=== PATIENT | male | born 1950 | race Caucasian/White ===

== ENCOUNTER → 2017-11-19 | Outpatient (CLI) | payer MEDICARE ==
[~2017-11-19] MED LIST: AMOCLA875 PO; ASPI81EC PO; BETA1 PO; BILBERRY; BILBERRY PO; Bactrim Ds Tab1 EACH PO; CHOL10002 PO; CLOP75 PO; CYAN500 PO; Cipro750 MG PO; DIOVAN HCT PO; DULO60 PO; DUTA.5 PO; ESOM20 PO; EVENING PRIMR1000 MG PO; EVENING PRIMROSE; EZET10 PO; FENO160 PO; FEXPSEER PO; FINA5 PO; FISH1000 PO; HYDCOR1TO TOP; HYDR-86 PO; IBUP800 PO; LEVSOD100 PO; LIDO5TO TOP; LISI5 PO; LOSHYD PO; METANX CAPSULE1 EACH PO; MORP15ER PO; MULVITMIND PO; NEBI5 PO; NITR.4SL SL; Norco PO; Ocuvite Preser1 EACH PO; PIOG15 PO; POLY17UD PO; PREG100 PO; PREG300 PO; PYRI100 PO; ROPI.25 PO; SIMV10 PO; SULTRIDS PO; TAMS.4ER PO; TIGER BALM OINTM8 GM TP; TRAM50 PO
== END ==
LOC: LAB SHORT 18:05 → LAB 18:05
DX: N20.0 Calculus of kidney (principal); R31.9 Hematuria, unspecified; R30.0 Dysuria
CPT/HCPCS: 87086

== ENCOUNTER → 2018-08-21 | Outpatient (CLI) | payer MEDICARE | END | disposition home or self-care (01) | LOC: LAB SHORT 07:59 → PLD 07:59 | DX: D22.5 Melanocytic nevi of trunk (principal); L82.1 Other seborrheic keratosis | CPT/HCPCS: 88305 ==

== ENCOUNTER → 2018-09-11 | Outpatient (CLI) | payer MEDICARE | END | disposition home or self-care (01) | LOC: LAB 17:22 → LAB SHORT 17:22 | DX: L97.509 Non-pressure chronic ulcer of other part of unspecified foot with unspecified severity (principal) | CPT/HCPCS: 87070; 87075; 87076; 87205 ==

== ENCOUNTER → 2019-02-19 | Outpatient (CLI) | payer MEDICARE | END | disposition home or self-care (01) | LOC: LAB SHORT 14:29 → LAB 14:29 | DX: L97.509 Non-pressure chronic ulcer of other part of unspecified foot with unspecified severity (principal) | CPT/HCPCS: 87070; 87075; 87205 ==

== ENCOUNTER → 2019-02-25 | Outpatient (CLI) | payer MEDICARE | END | disposition home or self-care (01) | LOC: LAB SHORT 08:26 → PLD 08:26 | DX: D22.5 Melanocytic nevi of trunk (principal) | CPT/HCPCS: 88305; 88342 ==

== ENCOUNTER 2019-02-27 07:49 | Day surgery (SDC) | payer MEDICARE | END 2019-02-27 23:36 | disposition home or self-care (01) | LOC: WOUND 07:49 | DX: E11.621 Type 2 diabetes mellitus with foot ulcer (principal); L97.529 Non-pressure chronic ulcer of other part of left foot with unspecified severity; E11.42 Type 2 diabetes mellitus with diabetic polyneuropathy; I10 Essential (primary) hypertension; Z89.412 Acquired absence of left great toe; Z89.422 Acquired absence of other left toe(s) | CPT/HCPCS: G0463 ==

== ENCOUNTER 2019-03-04 00:24 | Day surgery (SDC) | payer MEDICARE | END 2019-03-04 22:58 | disposition home or self-care (01) | LOC: WOUND 00:24 | DX: E11.621 Type 2 diabetes mellitus with foot ulcer (principal); L97.521 Non-pressure chronic ulcer of other part of left foot limited to breakdown of skin; E11.42 Type 2 diabetes mellitus with diabetic polyneuropathy | CPT/HCPCS: Q4196 ==

== ENCOUNTER 2019-03-11 00:26 | Day surgery (SDC) | payer MEDICARE | END 2019-03-11 23:17 | disposition home or self-care (01) | LOC: WOUND 00:26 | DX: E11.621 Type 2 diabetes mellitus with foot ulcer (principal); L97.529 Non-pressure chronic ulcer of other part of left foot with unspecified severity; E11.42 Type 2 diabetes mellitus with diabetic polyneuropathy; I10 Essential (primary) hypertension; Z89.412 Acquired absence of left great toe; Z89.422 Acquired absence of other left toe(s) | CPT/HCPCS: G0463 ==

== ENCOUNTER 2019-03-17 00:22 | Day surgery (SDC) | payer MEDICARE | END 2019-03-17 22:42 | disposition home or self-care (01) | LOC: WOUND 00:22 | DX: E11.621 Type 2 diabetes mellitus with foot ulcer (principal); L97.521 Non-pressure chronic ulcer of other part of left foot limited to breakdown of skin; I10 Essential (primary) hypertension; E11.42 Type 2 diabetes mellitus with diabetic polyneuropathy | CPT/HCPCS: Q4196 ==

== ENCOUNTER 2019-03-25 14:40 | Day surgery (SDC) | payer MEDICARE | END 2019-03-25 22:49 | disposition home or self-care (01) | LOC: WOUND 14:40 | DX: E11.621 Type 2 diabetes mellitus with foot ulcer (principal); L97.529 Non-pressure chronic ulcer of other part of left foot with unspecified severity; E11.42 Type 2 diabetes mellitus with diabetic polyneuropathy; I10 Essential (primary) hypertension; Z89.422 Acquired absence of other left toe(s) | CPT/HCPCS: 73630; G0463 ==

== ENCOUNTER → 2019-03-25 | Outpatient (CLI) | payer MEDICARE | END | disposition home or self-care (01) | LOC: LAB SHORT 14:27 → PLD 14:27 | DX: D48.5 Neoplasm of uncertain behavior of skin (principal) | CPT/HCPCS: 88305 ==

== ENCOUNTER 2019-04-01 14:58 | Day surgery (SDC) | payer MEDICARE | END 2019-04-01 23:06 | disposition home or self-care (01) | LOC: WOUND 14:58 | DX: E11.621 Type 2 diabetes mellitus with foot ulcer (principal); L97.521 Non-pressure chronic ulcer of other part of left foot limited to breakdown of skin; E11.40 Type 2 diabetes mellitus with diabetic neuropathy, unspecified; I10 Essential (primary) hypertension | CPT/HCPCS: Q4196 ==

== ENCOUNTER 2019-04-08 00:39 | Day surgery (SDC) | payer MEDICARE | END 2019-04-08 22:45 | disposition home or self-care (01) | LOC: WOUND 00:39 | DX: E11.621 Type 2 diabetes mellitus with foot ulcer (principal); L97.522 Non-pressure chronic ulcer of other part of left foot with fat layer exposed; E11.42 Type 2 diabetes mellitus with diabetic polyneuropathy; I10 Essential (primary) hypertension; E78.00 Pure hypercholesterolemia, unspecified; Z79.899 Other long term (current) drug therapy | CPT/HCPCS: Q4196 ==

== ENCOUNTER 2019-04-15 14:46 | Day surgery (SDC) | payer MEDICARE | END 2019-04-15 23:06 | disposition home or self-care (01) | LOC: WOUND 14:46 | DX: E11.621 Type 2 diabetes mellitus with foot ulcer (principal); L97.522 Non-pressure chronic ulcer of other part of left foot with fat layer exposed; E11.42 Type 2 diabetes mellitus with diabetic polyneuropathy; I10 Essential (primary) hypertension | CPT/HCPCS: Q4196 ==

== ENCOUNTER 2019-04-22 00:16 | Day surgery (SDC) | payer MEDICARE | END 2019-04-22 22:58 | disposition home or self-care (01) | LOC: WOUND 00:16 | DX: E11.621 Type 2 diabetes mellitus with foot ulcer (principal); L97.522 Non-pressure chronic ulcer of other part of left foot with fat layer exposed; E11.42 Type 2 diabetes mellitus with diabetic polyneuropathy; G89.29 Other chronic pain; E78.00 Pure hypercholesterolemia, unspecified; I10 Essential (primary) hypertension; Z79.899 Other long term (current) drug therapy | CPT/HCPCS: Q4196 ==

== ENCOUNTER 2019-04-29 00:26 | Day surgery (SDC) | payer MEDICARE | END 2019-04-29 22:41 | disposition home or self-care (01) | LOC: WOUND 00:26 | DX: E11.621 Type 2 diabetes mellitus with foot ulcer (principal); L97.522 Non-pressure chronic ulcer of other part of left foot with fat layer exposed; E11.42 Type 2 diabetes mellitus with diabetic polyneuropathy; E78.00 Pure hypercholesterolemia, unspecified; I10 Essential (primary) hypertension; Z79.899 Other long term (current) drug therapy ==

== ENCOUNTER 2019-05-06 00:26 | Day surgery (SDC) | payer MEDICARE | END 2019-05-06 22:46 | disposition home or self-care (01) | LOC: WOUND 00:26 | DX: E11.621 Type 2 diabetes mellitus with foot ulcer (principal); L97.522 Non-pressure chronic ulcer of other part of left foot with fat layer exposed; E11.42 Type 2 diabetes mellitus with diabetic polyneuropathy; E78.00 Pure hypercholesterolemia, unspecified; I10 Essential (primary) hypertension; Z79.899 Other long term (current) drug therapy | CPT/HCPCS: Q4133 ==

== ENCOUNTER 2019-05-13 14:46 | Day surgery (SDC) | payer MEDICARE | END 2019-05-13 23:14 | disposition home or self-care (01) | LOC: WOUND 14:46 | DX: E11.621 Type 2 diabetes mellitus with foot ulcer (principal); L97.522 Non-pressure chronic ulcer of other part of left foot with fat layer exposed; E11.52 Type 2 diabetes mellitus with diabetic peripheral angiopathy with gangrene; I96 Gangrene, not elsewhere classified; E11.42 Type 2 diabetes mellitus with diabetic polyneuropathy; E78.00 Pure hypercholesterolemia, unspecified; I10 Essential (primary) hypertension; G89.29 Other chronic pain; D64.9 Anemia, unspecified; Z79.899 Other long term (current) drug therapy | CPT/HCPCS: Q4133 ==

== ENCOUNTER 2019-05-20 14:48 | Day surgery (SDC) | payer MEDICARE | END 2019-05-20 23:59 | disposition home or self-care (01) | LOC: WOUND 14:48 | DX: E11.621 Type 2 diabetes mellitus with foot ulcer (principal); L97.522 Non-pressure chronic ulcer of other part of left foot with fat layer exposed; E11.42 Type 2 diabetes mellitus with diabetic polyneuropathy; E78.00 Pure hypercholesterolemia, unspecified; I10 Essential (primary) hypertension; G89.29 Other chronic pain; Z79.899 Other long term (current) drug therapy | CPT/HCPCS: Q4133 ==

== ENCOUNTER 2019-05-27 14:08 | Day surgery (SDC) | payer MEDICARE | END 2019-05-27 22:50 | disposition home or self-care (01) | LOC: WOUND 14:08 | DX: E11.621 Type 2 diabetes mellitus with foot ulcer (principal); E11.42 Type 2 diabetes mellitus with diabetic polyneuropathy; E78.00 Pure hypercholesterolemia, unspecified; I10 Essential (primary) hypertension; G89.29 Other chronic pain; L97.522 Non-pressure chronic ulcer of other part of left foot with fat layer exposed; Z79.899 Other long term (current) drug therapy | CPT/HCPCS: Q4133 ==

== ENCOUNTER 2019-06-09 11:12 | Day surgery (SDC) | payer MEDICARE | END 2019-06-09 22:36 | disposition home or self-care (01) | LOC: WOUND 11:12 | DX: E11.621 Type 2 diabetes mellitus with foot ulcer (principal); L97.522 Non-pressure chronic ulcer of other part of left foot with fat layer exposed; E11.52 Type 2 diabetes mellitus with diabetic peripheral angiopathy with gangrene; I96 Gangrene, not elsewhere classified; E11.42 Type 2 diabetes mellitus with diabetic polyneuropathy; D64.9 Anemia, unspecified; E78.00 Pure hypercholesterolemia, unspecified; I10 Essential (primary) hypertension; G89.29 Other chronic pain; Z89.422 Acquired absence of other left toe(s); Z79.899 Other long term (current) drug therapy ==

== ENCOUNTER 2019-06-24 00:37 | Day surgery (SDC) | payer MEDICARE | END 2019-06-24 22:49 | disposition home or self-care (01) | LOC: WOUND 00:37 | DX: E11.621 Type 2 diabetes mellitus with foot ulcer (principal); L97.522 Non-pressure chronic ulcer of other part of left foot with fat layer exposed; E11.52 Type 2 diabetes mellitus with diabetic peripheral angiopathy with gangrene; I96 Gangrene, not elsewhere classified; I10 Essential (primary) hypertension; D64.9 Anemia, unspecified; E11.42 Type 2 diabetes mellitus with diabetic polyneuropathy; E78.00 Pure hypercholesterolemia, unspecified; E78.5 Hyperlipidemia, unspecified; G89.29 Other chronic pain; Z89.422 Acquired absence of other left toe(s); Z79.899 Other long term (current) drug therapy | CPT/HCPCS: 73630; G0463 ==

== ENCOUNTER 2019-07-08 00:18 | Day surgery (SDC) | payer MEDICARE | END 2019-07-08 23:15 | disposition home or self-care (01) | LOC: WOUND 00:18 | DX: E11.621 Type 2 diabetes mellitus with foot ulcer (principal); E11.42 Type 2 diabetes mellitus with diabetic polyneuropathy; L97.522 Non-pressure chronic ulcer of other part of left foot with fat layer exposed; E78.00 Pure hypercholesterolemia, unspecified; I10 Essential (primary) hypertension; Z79.899 Other long term (current) drug therapy ==

== ENCOUNTER 2019-07-15 00:18 | Day surgery (SDC) | payer MEDICARE | END 2019-07-15 23:12 | disposition home or self-care (01) | LOC: WOUND 00:18 | DX: E11.621 Type 2 diabetes mellitus with foot ulcer (principal); E11.42 Type 2 diabetes mellitus with diabetic polyneuropathy; L97.522 Non-pressure chronic ulcer of other part of left foot with fat layer exposed; E78.00 Pure hypercholesterolemia, unspecified; I10 Essential (primary) hypertension; Z79.899 Other long term (current) drug therapy ==

== ENCOUNTER → 2019-07-21 | Outpatient (CLI) | payer MEDICARE | END | disposition home or self-care (01) | LOC: LAB SHORT 11:41 → LAB 11:41 | DX: E11.621 Type 2 diabetes mellitus with foot ulcer (principal); L97.529 Non-pressure chronic ulcer of other part of left foot with unspecified severity; E11.40 Type 2 diabetes mellitus with diabetic neuropathy, unspecified | CPT/HCPCS: 87070; 87075; 87077; 87205 ==

== ENCOUNTER → 2019-08-10 | Outpatient (CLI) | payer MEDICARE | END | disposition home or self-care (01) | LOC: PLD 12:39 → LAB SHORT 12:39 | DX: M86.172 Other acute osteomyelitis, left ankle and foot (principal); Z89.422 Acquired absence of other left toe(s) | CPT/HCPCS: 87070; 87075; 87205; 88305; 88311 ==

== ENCOUNTER → 2019-11-04 | Outpatient (CLI) | payer MEDICARE | END | disposition home or self-care (01) | LOC: LAB SHORT 15:31 → LAB 15:31 | DX: E11.40 Type 2 diabetes mellitus with diabetic neuropathy, unspecified (principal); L03.119 Cellulitis of unspecified part of limb | CPT/HCPCS: 87070; 87075; 87077; 87205 ==

== ENCOUNTER → 2020-02-01 | Outpatient (CLI) | payer MEDICARE | END | disposition home or self-care (01) | LOC: LAB 11:38 → LAB SHORT 11:38 | DX: M79.673 Pain in unspecified foot (principal); E11.42 Type 2 diabetes mellitus with diabetic polyneuropathy; E11.621 Type 2 diabetes mellitus with foot ulcer; L97.509 Non-pressure chronic ulcer of other part of unspecified foot with unspecified severity; E11.69 Type 2 diabetes mellitus with other specified complication; M86.179 Other acute osteomyelitis, unspecified ankle and foot; L03.119 Cellulitis of unspecified part of limb | CPT/HCPCS: 88305; 88311 ==

== ENCOUNTER → 2020-09-14 | Outpatient (CLI) | payer MEDICARE | LOC: LAB SHORT 15:12 | DX: D48.5 Neoplasm of uncertain behavior of skin (principal); D22.5 Melanocytic nevi of trunk; D31.61 Benign neoplasm of unspecified site of right orbit | CPT/HCPCS: 88305 ==

== ENCOUNTER 2020-11-13 16:23 | Emergency (ER) | payer MEDICARE ==
[~2020-11-13] VITALS: Ht 190.5 cm; Wt 90.7 kg
[2020-11-13] MEDS ORDERED: CEPH500 PO (17:17)
== END 2020-11-13 17:46 | disposition home or self-care (01) ==
LOC: ER 16:23
DX: S91.311A Laceration without foreign body, right foot, initial encounter (principal); E11.40 Type 2 diabetes mellitus with diabetic neuropathy, unspecified; Z79.899 Other long term (current) drug therapy; W45.8XXA Other foreign body or object entering through skin, initial encounter
CPT/HCPCS: 12001; 99282-25

== ENCOUNTER → 2021-05-16 | Outpatient (CLI) | payer MEDICARE ==
[~2021-05-16] MED LIST changes: +CEPH500 PO
== END | disposition home or self-care (01) ==
LOC: LAB SHORT 08:30
DX: C44.41 Basal cell carcinoma of skin of scalp and neck (principal); D22.5 Melanocytic nevi of trunk
CPT/HCPCS: 88305

== ENCOUNTER → 2021-11-22 | Outpatient (CLI) | payer MEDICARE ==
[2021-11-22 17:17] LABS: BASOPHILS ABSOLUTE AUTO 0.02 K/mm3 (0.00-0.23); BASOPHILS PERCENT AUTO 0 % (0-2); EOSINOPHILS ABSOLUTE AUTO 0.02 K/mm3 (0.00-0.68); EOSINOPHILS PERCENT AUTO 0 % (0-6); Hematocrit 42.7 % (37.0-53.0); Hemoglobin 15.3 g/dL (13.5-17.5); IMMATURE GRAN ABSOLUTE AUTO 0.05 K/mm3 (0.00-0.10); IMMATURE GRAN PERCENT AUTO 1 % (0-1); LYMPHOCYTES ABSOLUTE AUTO 1.62 K/mm3 (0.84-5.20); LYMPHOCYTES PERCENT AUTO 18 % (21-46); MONOCYTES ABSOLUTE AUTO 0.66 K/mm3 (0.16-1.47); MONOCYTES PERCENT AUTO 7 % (4-13); Mean Corpuscular HGB 30.9 pg (26.0-34.0); Mean Corpuscular HGB Conc 35.8 g/dL (31.5-36.5); Mean Corpuscular Volume 86 fL (80-100); Mean Platelet Volume 10.1 fL (9.1-12.4); NEUTROPHILS ABSOLUTE AUTO 6.76 K/mm3 (1.96-9.15); NEUTROPHILS PERCENT AUTO 74 % (41-73); Platelet Count 263 K/mm3 (150-400); RDW Coefficient Variation 13.8 % (11.7-14.2); RDW Standard Deviation 42.8 fL (35.1-46.3); Red Blood Cell Count 4.95 M/mm3 (4.30-5.90); White Blood Cell Count 9.13 K/mm3 (4.00-11.30)
[2021-11-22 17:23] LABS: Bun/Creatinine Ratio 13.2 (12.0-20.0); Calcium, Blood 9.5 mg/dL (8.5-10.1); Creatinine, Blood 1.29 mg/dL (0.60-1.20); Potassium, Blood 3.2 mmol/L (3.5-5.5)
== END | disposition home or self-care (01) ==
LOC: LAB SHORT 17:11 → LAB 17:11
PROVIDERS: Physician Assistant Surgical
DX: R06.00 Dyspnea, unspecified (principal)
CPT/HCPCS: 80048; 84484; 85025

== ENCOUNTER 2022-05-23 14:33 | Emergency (ER) | payer MEDICARE ==
[~2022-05-23] VITALS: Ht 190.5 cm; Wt 99.8 kg
[2022-05-23 15:42] LABS: BASOPHILS ABSOLUTE AUTO 0.05 K/mm3 (0.00-0.23); BASOPHILS PERCENT AUTO 1 % (0-2); EOSINOPHILS ABSOLUTE AUTO 0.09 K/mm3 (0.00-0.68); EOSINOPHILS PERCENT AUTO 1 % (0-6); Hematocrit 37.7 % (37.0-53.0); IMMATURE GRAN ABSOLUTE AUTO 0.03 K/mm3 (0.00-0.10); IMMATURE GRAN PERCENT AUTO 0 % (0-1); LYMPHOCYTES ABSOLUTE AUTO 1.79 K/mm3 (0.84-5.20); LYMPHOCYTES PERCENT AUTO 16 % (21-46); MONOCYTES ABSOLUTE AUTO 0.79 K/mm3 (0.16-1.47); MONOCYTES PERCENT AUTO 7 % (4-13); Mean Corpuscular HGB 30.5 pg (26.0-34.0); Mean Corpuscular HGB Conc 34.5 g/dL (31.5-36.5); Mean Corpuscular Volume 89 fL (80-100); Mean Platelet Volume 9.7 fL (9.1-12.4); NEUTROPHILS PERCENT AUTO 75 % (41-73); Platelet Count 320 K/mm3 (150-400); RDW Coefficient Variation 14.2 % (11.7-14.2); RDW Standard Deviation 45.8 fL (35.1-46.3); Red Blood Cell Count 4.26 M/mm3 (4.30-5.90); White Blood Cell Count 10.95 K/mm3 (4.00-11.30)
[2022-05-23 16:07] LABS: Albumin, Blood 3.7 g/dL (3.4-5.0); Albumin/Globulin Ratio 0.9 (0.8-1.8); Bilirubin, Total 0.8 mg/dL (0.1-1.0); Bun/Creatinine Ratio 13.3 (12.0-20.0); Creatinine, Blood 1.05 mg/dL (0.60-1.20); Potassium, Blood 3.6 mmol/L (3.5-5.5); Total Protein, Blood 7.7 g/dL (6.4-8.2)
[2022-05-23] MEDS ORDERED: Cleocin HCl150 MG PO (17:01)
== END 2022-05-23 17:09 | disposition home or self-care (01) ==
LOC: ER 14:33
PROVIDERS: Physician Assistant
DX: E11.621 Type 2 diabetes mellitus with foot ulcer (principal); L97.529 Non-pressure chronic ulcer of other part of left foot with unspecified severity; E11.40 Type 2 diabetes mellitus with diabetic neuropathy, unspecified; Z79.899 Other long term (current) drug therapy
CPT/HCPCS: 73620; 80053; 85025; 99283-25

== ENCOUNTER 2022-09-12 02:24 | Day surgery (SDC) | payer MEDICARE ==
[~2022-09-12 02:24] MED LIST changes: +AMLO5 PO; +Cleocin HCl150 MG PO; +LYRICA CR330 MG PO
== END 2022-09-12 23:05 | disposition home or self-care (01) ==
LOC: WOUND 02:24
DX: E11.621 Type 2 diabetes mellitus with foot ulcer (principal); L97.426 Non-pressure chronic ulcer of left heel and midfoot with bone involvement without evidence of necrosis; L97.512 Non-pressure chronic ulcer of other part of right foot with fat layer exposed; E11.69 Type 2 diabetes mellitus with other specified complication; M86.172 Other acute osteomyelitis, left ankle and foot; T87.9 Unspecified complications of amputation stump; I73.9 Peripheral vascular disease, unspecified; E11.42 Type 2 diabetes mellitus with diabetic polyneuropathy; I10 Essential (primary) hypertension; Z89.422 Acquired absence of other left toe(s)
CPT/HCPCS: G0463

== ENCOUNTER 2022-09-19 02:42 | Day surgery (SDC) | payer MEDICARE | END 2022-09-19 22:56 | disposition home or self-care (01) | LOC: WOUND 02:42 | DX: E11.621 Type 2 diabetes mellitus with foot ulcer (principal); L97.422 Non-pressure chronic ulcer of left heel and midfoot with fat layer exposed; L97.512 Non-pressure chronic ulcer of other part of right foot with fat layer exposed; E11.69 Type 2 diabetes mellitus with other specified complication; M86.172 Other acute osteomyelitis, left ankle and foot; T87.9 Unspecified complications of amputation stump; I73.9 Peripheral vascular disease, unspecified; Z89.422 Acquired absence of other left toe(s) | CPT/HCPCS: A9270; G0463 ==

== ENCOUNTER 2022-09-26 01:19 | Day surgery (SDC) | payer MEDICARE | END 2022-09-26 23:05 | disposition home or self-care (01) | LOC: WOUND 01:19 | DX: E11.621 Type 2 diabetes mellitus with foot ulcer (principal); L97.422 Non-pressure chronic ulcer of left heel and midfoot with fat layer exposed; E11.42 Type 2 diabetes mellitus with diabetic polyneuropathy; E78.00 Pure hypercholesterolemia, unspecified; I10 Essential (primary) hypertension; L97.512 Non-pressure chronic ulcer of other part of right foot with fat layer exposed; E11.69 Type 2 diabetes mellitus with other specified complication; Z89.422 Acquired absence of other left toe(s); T87.9 Unspecified complications of amputation stump; E11.51 Type 2 diabetes mellitus with diabetic peripheral angiopathy without gangrene | CPT/HCPCS: A9270; G0463 ==

== ENCOUNTER 2022-10-03 02:36 | Day surgery (SDC) | payer MEDICARE | END 2022-10-03 23:33 | disposition home or self-care (01) | LOC: WOUND 02:36 | DX: E11.621 Type 2 diabetes mellitus with foot ulcer (principal); L97.422 Non-pressure chronic ulcer of left heel and midfoot with fat layer exposed; L97.512 Non-pressure chronic ulcer of other part of right foot with fat layer exposed; E11.69 Type 2 diabetes mellitus with other specified complication; M86.172 Other acute osteomyelitis, left ankle and foot; T87.9 Unspecified complications of amputation stump; E11.51 Type 2 diabetes mellitus with diabetic peripheral angiopathy without gangrene; E11.42 Type 2 diabetes mellitus with diabetic polyneuropathy; I10 Essential (primary) hypertension; Z89.422 Acquired absence of other left toe(s) | CPT/HCPCS: G0463 ==

== ENCOUNTER 2022-10-17 05:45 | Day surgery (SDC) | payer MEDICARE | END 2022-10-17 23:08 | disposition home or self-care (01) | LOC: WOUND 05:45 | DX: E11.621 Type 2 diabetes mellitus with foot ulcer (principal); L97.422 Non-pressure chronic ulcer of left heel and midfoot with fat layer exposed; L97.512 Non-pressure chronic ulcer of other part of right foot with fat layer exposed; L97.522 Non-pressure chronic ulcer of other part of left foot with fat layer exposed; E11.69 Type 2 diabetes mellitus with other specified complication; M86.172 Other acute osteomyelitis, left ankle and foot; T87.9 Unspecified complications of amputation stump; E11.51 Type 2 diabetes mellitus with diabetic peripheral angiopathy without gangrene; E11.42 Type 2 diabetes mellitus with diabetic polyneuropathy; I10 Essential (primary) hypertension; Z89.422 Acquired absence of other left toe(s) | CPT/HCPCS: A9270; G0463 ==

== ENCOUNTER 2022-10-25 03:56 | Day surgery (SDC) | payer MEDICARE | END 2022-10-25 22:44 | disposition home or self-care (01) | LOC: WOUND 03:56 | DX: E11.621 Type 2 diabetes mellitus with foot ulcer (principal); L97.422 Non-pressure chronic ulcer of left heel and midfoot with fat layer exposed; L97.522 Non-pressure chronic ulcer of other part of left foot with fat layer exposed; E11.69 Type 2 diabetes mellitus with other specified complication; M86.172 Other acute osteomyelitis, left ankle and foot; T87.9 Unspecified complications of amputation stump; Y83.8 Other surgical procedures as the cause of abnormal reaction of the patient, or of later complication, without mention of misadventure at the time of the procedure; E11.51 Type 2 diabetes mellitus with diabetic peripheral angiopathy without gangrene; Z89.422 Acquired absence of other left toe(s); I10 Essential (primary) hypertension; E11.42 Type 2 diabetes mellitus with diabetic polyneuropathy; G89.29 Other chronic pain | CPT/HCPCS: A9270; G0463 ==

== ENCOUNTER 2022-11-01 02:30 | Day surgery (SDC) | payer MEDICARE | END 2022-11-01 23:37 | disposition home or self-care (01) | LOC: WOUND 02:30 | DX: E11.51 Type 2 diabetes mellitus with diabetic peripheral angiopathy without gangrene (principal); L98.492 Non-pressure chronic ulcer of skin of other sites with fat layer exposed; I70.25 Atherosclerosis of native arteries of other extremities with ulceration; T87.89 Other complications of amputation stump; E11.69 Type 2 diabetes mellitus with other specified complication; M86.172 Other acute osteomyelitis, left ankle and foot; I10 Essential (primary) hypertension; E11.42 Type 2 diabetes mellitus with diabetic polyneuropathy; E70.0 Classical phenylketonuria; Z89.412 Acquired absence of left great toe; Y83.5 Amputation of limb(s) as the cause of abnormal reaction of the patient, or of later complication, without mention of misadventure at the time of the procedure | CPT/HCPCS: A9270; G0463 ==

== ENCOUNTER 2022-11-09 08:35 | Day surgery (SDC) | payer MEDICARE ==
[~2022-11-09] VITALS: Ht 190.5 cm; Wt 96.7 kg
[2022-11-09] MEDS ORDERED: PIOG15 PO (10:10)
--- NOTE | 2022-11-09 10:36 | NUR ---
11/09/22 1036 Naomi Mc 0955: PATIENT RELUCTANT TO PUT BELONGINGS IN LOCKER. 1018: PATIENT PROVIDED CAMERON FOR LOCKER AND CAMERON SAFETY PINNED TO HIS GOWN. 1023: PATIENT REFUSED TO GIVE UP GLASSES TO BE STORED IN LOCKER WITH HIS OTHER BELONGINGS AND STATES THE GLASSES ARE "IN A SAFE PLACE". WHEN ASKED WHERE THAT PLACE HE REPEATED "THEY'RE IN A SAFE PLACE." DIRECTOR OF SPORTS PERFORMANCE ASKED IF THAT PLACE WAS ON HIS PERSON AND HE STATED "YES". DIRECTOR OF SPORTS PERFORMANCE EXPLAINED THE RISKS OF TAKING HIS GLASSES INTO THE OPERATING ROOM INCLUDING THAT THE GLASSES MAY BE BROKEN OR LOST, PATIENT VERBALIZED UNDERSTANDING AND REFUSED TO GIVE UP HIS GLASSES TO BE PLACED IN THE LOCKER.
--- NOTE | 2022-11-09 11:06 | NUR ---
11/09/22 1106 Arianna Escoto 0.15ML OF EPI 1MG/ML ADDED TO 30ML OF ROPIVICAINE 0.5% TO CREATE A LOCAL SOLUTION OF ROPIVICAINE 0.5% WITH EPI 1:200,000. 30MLS USED. PT CONTINUED TO REFUSE TO GIVE HIS GLASSES. PT STATED THEY ARE "ON HIS PERSON." HE WAS CAUTIONED ABOUT LOSS AND DAMAGE TO THEM WITH MOVING TO AND FROM OR TABLE. PT STILL DECLINED TO GIVE THEM UP. HIS NECK PILLOW WHICH HE REFFUSED TO GIVE UP REMAINED UNDER HIS NECK AT ALL TIMES.
[2022-11-09 11:49] VITALS: BP 124/72
== END 2022-11-09 14:03 | disposition home or self-care (01) ==
LOC: ORSCSDS 08:35
PROVIDERS: Podiatrist Foot & Ankle Surgery
PROC: 0Y6N0ZC Detachment at Left Foot, Partial 3rd Ray, Open Approach (ICD-10-PCS; principal; 2022-11-09 10:30)
PROC: 0Y6N0ZD Detachment at Left Foot, Partial 4th Ray, Open Approach (ICD-10-PCS; principal; 2022-11-09 10:30)
PROC: 0Y6N0Z9 Detachment at Left Foot, Partial 1st Ray, Open Approach (ICD-10-PCS; principal; 2022-11-09 10:30)
PROC: 0Y6N0ZB Detachment at Left Foot, Partial 2nd Ray, Open Approach (ICD-10-PCS; principal; 2022-11-09 10:30)
DX: M86.172 Other acute osteomyelitis, left ankle and foot (principal); I10 Essential (primary) hypertension; E11.40 Type 2 diabetes mellitus with diabetic neuropathy, unspecified; Z79.84 Long term (current) use of oral hypoglycemic drugs; Z79.899 Other long term (current) drug therapy; N40.0 Benign prostatic hyperplasia without lower urinary tract symptoms
CPT/HCPCS: 82947; 87071; 87075; 87205; 88307; 88311; A9270; J0171; J0690; J1100; J2250; J2405; J2704; J2795; J3010; J7120

== ENCOUNTER 2024-05-01 08:07 | Day surgery (SDC) | payer MEDICARE ==
[~2024-05-01] VITALS: Ht 190.5 cm; Wt 99.9 kg
[2024-05-01] MEDS ORDERED: CeFAZolin Sodium 2,000 MG VIAL ONE (08:21)
[2024-05-01] MEDS ORDERED: NS 50 ML IV ONE (08:22)
[2024-05-01] MEDS ORDERED: propofoL 20 ML IV ONE (08:44)
[2024-05-01] MEDS ORDERED: FentaNYL Citrate 50 MCG/ML 2 ML Injection ONE (08:44)
[2024-05-01] MEDS ORDERED: Midazolam HCl 1MG / ML 2ML Vial ONE (08:44)
[2024-05-01] MEDS ORDERED: Simvastatin20 MG PO (08:45)
[2024-05-01] MEDS ORDERED: LIDO5TO TOP (08:45)
[2024-05-01] MEDS ORDERED: LOSA50 PO (08:47)
[2024-05-01] MEDS ORDERED: Lactated Ringer's 1,000 ML IV ONE (09:19)
[2024-05-01] MEDS ORDERED: Ondansetron HCl 2 MG / ML 2ML Vial ONE (10:06)
[2024-05-01] MEDS ORDERED: Metoclopramide HCl 5MG / ML 2ML Vial ONE (10:06)
--- NOTE | 2024-05-01 10:29 | NUR ---
05/01/24 Marco Antonio9 Pamela Kiran 30ML OF ROPIVACAINE 0.5% MIXED AND VERIFIED WITH 0.15ML OF EPI (1MG/ML) TO MAKE ROPIVACAINE 0.5% WITH EPI 1:200,000 FOR INJECTION AT THE OPSITE.
[2024-05-01] MEDS ORDERED: Ropivacaine 0.5% HCl/Pf 5 MG/ML 20ML VIAL INJ ONE (10:30)
[2024-05-01] MEDS ORDERED: EPINEPhrine HCl 1 MG/ML 1ML Amp XX ONE (10:30)
[2024-05-01 12:36] VITALS: BP 146/65
== END 2024-05-01 12:29 | disposition home or self-care (01) ==
LOC: ORSCSDS 08:07
PROVIDERS: Podiatrist Foot & Ankle Surgery
PROC: 0Y6X0Z0 Detachment at Right 5th Toe, Complete, Open Approach (ICD-10-PCS; principal; 2024-05-01 10:15)
DX: M86.171 Other acute osteomyelitis, right ankle and foot (principal); E11.621 Type 2 diabetes mellitus with foot ulcer; I10 Essential (primary) hypertension; E78.5 Hyperlipidemia, unspecified; Z79.899 Other long term (current) drug therapy
CPT/HCPCS: 82947; 88305; 88311; J0171; J0690; J2250; J2405; J2704; J2765; J2795; J3010

== ENCOUNTER 2024-08-28 11:16 | Day surgery (SDC) | payer MEDICARE ==
[~2024-08-28] VITALS: Ht 190.5 cm; Wt 97.2 kg
[~2024-08-28 11:16] MED LIST changes: +LOSA50 PO; +Simvastatin20 MG PO
[2024-08-28] MEDS ORDERED: PREGABALIN PO (12:07)
[2024-08-28] MEDS ORDERED: HYDCHL25 PO (12:09)
[2024-08-28] MEDS ORDERED: METOPROLOL SUCC25 MG PO (12:09)
[2024-08-28] MEDS ORDERED: [UNRECOGNIZED DRUG - OTHER] (12:10)
[2024-08-28] MEDS ORDERED: [UNRECOGNIZED DRUG - OTHER] (12:11)
[2024-08-28] MEDS ORDERED: CeFAZolin Sodium 2,000 MG VIAL ONE (12:17)
[2024-08-28] MEDS ORDERED: Bupivacaine 0.5% W/EPI 1:200000 SDV 30 ML Vial ONE (12:24)
[2024-08-28] MEDS ORDERED: Lactated Ringer's 1,000 ML IV ONE ×2 (12:30→12:53)
[2024-08-28] MEDS ORDERED: Lidocaine HCl 1% 5 ML SYR INJ ONE (12:41)
--- NOTE | 2024-08-28 12:42 | NUR ---
08/28/24 Herminia2 Naomi Mc 1232: 2 ELISA OSUNA PROVIDED TO OR CANTEEN ATTENDANT JAERN
--- NOTE | 2024-08-28 12:47 | NUR ---
08/28/24 1247 Macy Kimbrough.[facility] NURSE MONITOR FOR LOCAL CASE
[2024-08-28 13:11] VITALS: BP 138/85
[2024-08-28] MEDS ORDERED: HYDROcodone 5-APAP 325 TAB ONE (13:28)
--- NOTE | 2024-08-28 13:37 | NUR ---
08/28/24 1337 Akshat Diggs TOLERATING FOOD AND FLUIDS. DENIES PAIN HOWEVER HE REQUESTS ANALGESIA FOR HIS TRIP HOME
== END 2024-08-28 13:47 | disposition home or self-care (01) ==
LOC: ORSCSDS 11:16
PROVIDERS: Podiatrist Foot & Ankle Surgery
PROC: 0Y6R0Z0 Detachment at Right 2nd Toe, Complete, Open Approach (ICD-10-PCS; principal; 2024-08-28 13:00)
DX: E11.621 Type 2 diabetes mellitus with foot ulcer (principal); M86.171 Other acute osteomyelitis, right ankle and foot; E78.5 Hyperlipidemia, unspecified; Z79.899 Other long term (current) drug therapy
CPT/HCPCS: 82947; 88305; 88311; A9270; J0690; J7120

== ENCOUNTER 2025-05-16 13:13 | Inpatient (IN) | payer MEDICARE ==
[~2025-05-16] VITALS: Ht 190.5 cm; Wt 99.5 kg
[~2025-05-16 13:13] MED LIST changes: +HYDCHL25 PO; +METOPROLOL SUCC25 MG PO; +PREGABALIN PO; +[UNRECOGNIZED DRUG - OTHER]; +[UNRECOGNIZED DRUG - OTHER]
[2025-05-16 13:44] LABS: BASOPHILS ABSOLUTE AUTO 0.06 K/mm3 (0.00-0.23); BASOPHILS PERCENT AUTO 0 % (0-2); EOSINOPHILS ABSOLUTE AUTO 0.05 K/mm3 (0.00-0.68); EOSINOPHILS PERCENT AUTO 0 % (0-6); Hematocrit 47.3 % (37.0-53.0); Hemoglobin 16.5 g/dL (13.5-17.5); IMMATURE GRAN ABSOLUTE AUTO 0.22 K/mm3 (0.00-0.10); IMMATURE GRAN PERCENT AUTO 1 % (0-1); LYMPHOCYTES ABSOLUTE AUTO 1.29 K/mm3 (0.84-5.20); LYMPHOCYTES PERCENT AUTO 8 % (21-46); MONOCYTES ABSOLUTE AUTO 1.56 K/mm3 (0.16-1.47); MONOCYTES PERCENT AUTO 10 % (4-13); Mean Corpuscular HGB Conc 34.9 g/dL (31.5-36.5); Mean Corpuscular Volume 87 fL (80-100); NEUTROPHILS ABSOLUTE AUTO 12.88 K/mm3 (1.96-9.15); NEUTROPHILS PERCENT AUTO 80 % (41-73); NRBC ABSOLUTE 0.00 K/mm3 (0.00-0.02); NRBC Auto 0.0 /100 WBC (0.0-0.2); Platelet Count 299 K/mm3 (150-400); RDW Coefficient Variation 14.4 % (11.7-14.2); RDW Standard Deviation 45.2 fL (35.1-46.3)
[2025-05-16] MEDS ORDERED: HYDROCODONE-AC1 EA19 PO (13:53)
[2025-05-16 14:03] LABS: Prothrombin Time Results 11.6 Sec (9.7-11.5)
[2025-05-16 14:22] LABS: Anion Gap 11.0 mmol/L (3-11); Blood Urea Nitrogen 40.0 mg/dL (8-24); CO2, Blood 24.0 mmol/L (21-32); Calcium, Blood 8.7 mg/dL (8.5-10.1); Chloride, Blood 108.0 mmol/L (98-108); Creatinine, Blood 1.11 mg/dL (0.60-1.20); Glucose, Blood 249.0 mg/dL (70-99); Magnesium, Blood 2.7 mg/dL (1.6-2.4); Potassium, Blood 4.1 mmol/L (3.5-5.5); Sodium, Blood 139.0 mmol/L (136-145); Thyroid Stimulating Hormone 2.71 uIU/mL (0.360-4.800)
[2025-05-16] MEDS ORDERED: NS 1,000 ML IV SCH ×2 (14:55→17:20)
[2025-05-16] MEDS ORDERED: FLU VACC TS2025(65UP)/MF59C/PF 45 MCG/0.5 ML SYRINGE IM SCH (17:15)
[2025-05-16 17:38] LABS: Source, Urine Clean Catch
[2025-05-16 17:41] LABS: Bilirubin, Urine Neg (Neg); Color, Urine Yellow (P-Yellow); Glucose Qualitative, Urine Neg (Neg); Ketones, Urine 2+ (Neg); Leukocyte Esterase, Urine 1+ (Neg); Protein, Urine 2+ (Neg); Specific Gravity, Urine 1.010 (1.003-1.022); Urobilinogen, Urine 1+ (Normal)
[2025-05-16 17:49] LABS: Red Blood Cells, Urine 0-2 /hpf (0-2)
[2025-05-16 17:52] LABS: U Amphetamine Screen Not Detected; U Barbiturate Screen Not Detected; U Benzodiazapine Screen Not Detected; U Buprenorphine Screen Not Detected; U Cannabinoids Screen Not Detected; U Cocaine Screen Not Detected; U Methadone Screen Not Detected; U Methamphetamine Screen Not Detected; U Opiates Screen Not Detected; U Oxycodone Screen Not Detected; U Phencyclidine Screen Not Detected
[2025-05-16 19:48] VITALS: BP 133/88
--- NOTE | 2025-05-16 20:00 | NUR ---
ARRIVAL TO SURGICAL ROOM 210 AT 1925. PT A/O X3, UNABLE TO STATE DATE/TIME. ORIENTED TO ROOM, CALL LIGHT, POLICIES AND PROCEDURES. PT ARRIVED VIA GURNEY AND SLIDER SHEET USED TO TRANSFER TO BED. PT HAS MULTIPLE SCATTERED SKIN CONCERNS, SCRATCHES, BRUISING, ABRASIONS T/O. PT ALSO REPORTS SKIN CX HX WITH LESIONS. PINK FOAM PROTECTORS PLACED ON BILATERAL HEELS. CALL LIGHT IN REACH.
[2025-05-17] VITALS (7 sets, daily range): BP systolic 89–164; BP diastolic 52–94
[2025-05-17] MEDS ORDERED: HYDROcodone 5-APAP 325 TAB PO PRN (02:35)
--- NOTE | 2025-05-17 03:00 | NUR ---
NEW ORDERS RECEIVED. CHANGE CONTROL MANAGER CORINNE MAHONEY CALLED HOSPITALIST TO CLARIFY ORDERS/OBTAIN NEW TO RESTART HOME LOSARTAN AND METOPROLOL FOR THIS PRIMARY RN. OTHER ORDERS ALSO CLARIFIED. PT VERBAL, AND DAUGHTER MADHAVI VIA PHONE CALL, EXPRESSED WANTING TO CHANGE CODE STATUS FROM DNR TO FULL CODE. CHANGE CONTROL MANAGER PLACED ORDERS RECEIVED FROM DR. ORR.
[2025-05-17 04:26] LABS: BASOPHILS ABSOLUTE AUTO 0.03 K/mm3 (0.00-0.23); BASOPHILS PERCENT AUTO 0 % (0-2); EOSINOPHILS ABSOLUTE AUTO 0.10 K/mm3 (0.00-0.68); EOSINOPHILS PERCENT AUTO 1 % (0-6); Hematocrit 42.3 % (37.0-53.0); Hemoglobin 14.7 g/dL (13.5-17.5); IMMATURE GRAN ABSOLUTE AUTO 0.22 K/mm3 (0.00-0.10); IMMATURE GRAN PERCENT AUTO 2 % (0-1); LYMPHOCYTES ABSOLUTE AUTO 1.54 K/mm3 (0.84-5.20); LYMPHOCYTES PERCENT AUTO 12 % (21-46); MONOCYTES ABSOLUTE AUTO 1.30 K/mm3 (0.16-1.47); MONOCYTES PERCENT AUTO 10 % (4-13); Mean Corpuscular HGB Conc 34.8 g/dL (31.5-36.5); Mean Corpuscular Volume 89 fL (80-100); NEUTROPHILS ABSOLUTE AUTO 9.74 K/mm3 (1.96-9.15); NEUTROPHILS PERCENT AUTO 75 % (41-73); NRBC ABSOLUTE 0.00 K/mm3 (0.00-0.02); NRBC Auto 0.0 /100 WBC (0.0-0.2); Platelet Count 225 K/mm3 (150-400); RDW Coefficient Variation 14.7 % (11.7-14.2); RDW Standard Deviation 47.0 fL (35.1-46.3)
[2025-05-17 04:48] LABS: Alanine Aminotransfer (ALT/SGP 108.0 U/L (12-78); Albumin, Blood 2.6 g/dL (3.4-5.0); Albumin/Globulin Ratio 0.8 (0.8-1.8); Anion Gap 9.0 mmol/L (3-11); Aspartate Aminotrans (AST/SGOT 70.0 U/L (12-37); Bilirubin, Total 2.0 mg/dL (0.1-1.0); Blood Urea Nitrogen 30.0 mg/dL (8-24); CO2, Blood 24.0 mmol/L (21-32); Calcium, Blood 8.2 mg/dL (8.5-10.1); Chloride, Blood 108.0 mmol/L (98-108); Creatinine, Blood 0.98 mg/dL (0.60-1.20); Globulin, Blood 3.1 g/dL (2.2-4.0); Glucose, Blood 230.0 mg/dL (70-99); Magnesium, Blood 2.5 mg/dL (1.6-2.4); Potassium, Blood 3.3 mmol/L (3.5-5.5); Sodium, Blood 138.0 mmol/L (136-145); Total Protein, Blood 5.7 g/dL (6.4-8.2)
--- NOTE | 2025-05-17 06:21 | NUR ---
RR/PT INTERACTION WENT IN RM TO MEDICATE PT W/NORCO FOR PRIMARY TONE MARQUIS & PT ASKED "CAN YOU CHECK MY HEART?". ASKED PT IF HE HAD ANY CP/PRESSURE &PT SAID "I DONT KNOW" "YOU HAVE A STETHASCOPE & ARE HERE." LISTENED TO HB & DIDNT NOTE ANYTHING ABNORMAL. HOWEVER NOTED PT TACHYPNIC W/RR 32 & SOME MILD TRACHEAL TUGGING. INFORMED PRIMARY TONE MARQUIS.
[2025-05-17] MEDS ORDERED: Insulin Human Lispro 100 Units/ML 3ML Syringe SC SCH (07:30)
--- NOTE | 2025-05-17 07:36 | NUR ---
SHIFT SUMMARY NOC. PT A/O X3. GENERALIZED WEAKNESS, FATIGUE, AND SOB WITH EXERTING HIMSELF WITH REPOSITIONING NOTED. PT MEDICATED FOR PAIN WITH MINIMAL REPORTED RELIEF. PT TACHYCARDIC AND HYPERTENSIVE THIS SHIFT, ORDERS OBTAINED TO REINSTATE HOME BP MEDS AND GIVEN AROUND 0300. IMPROVEMENT NOTED. PT VOIDING DARK AMISHA URINE. TOLERATING PO INTAKE. FLUIDS RUNNING PER EMAR. PT MAKES NEEDS KNOWN, CALL LIGHT IN REACH. REPORT GIVEN TO ONCOMING DAY SHIFT NURSE ALEJANDRO, AND DISCUSSED PT CASE WITH CRANK[employer]FT GRINDERTONE Quiñones
--- NOTE | 2025-05-17 08:58 | NUR ---
NOTE: DR. RAMOS CALLED D/T THIS NURSES CONCERN OF THIS PATIENT. PATIENTS BLOOD PREASURE SIGNIFICANTLY DROPPED WITHIN THE PAST TWO HOURS. MOST RECENT BLOOD PREASURE WAS 89/52 ON L ARM. PULSE OF 91 AND SPO2 OF 93. MR. OROSCO IS NOTED TO BE PRETTY LETHARGIC. ASKED ORIENTATION QUESTIONS AND WAS ONLY ABLE TO ANSWER 2-4.
[2025-05-17] MEDS ORDERED: Enoxaparin 40 MG/0.4 ML SYR SC SCH (09:00)
[2025-05-17] MEDS ORDERED: CefTRIAXone Sodium 1,000 MG in NS 100 ML IV SCH (10:00)
--- NOTE | 2025-05-17 10:30 | NUR ---
PATIENT TRANSFERRED FROM 210 TO ROOM 339, REPORT RECEIVED FROM RADHA ALLEN. PATIENT A/OX4, ABLE TO COMMUNICATE NEEDS. ORIENTED TO ROOM AND USE OF CALL LIGHT. REPORTS 4/10 GENERALIZED PAIN. PT/OT ORDERED, CURRENTLY BEDREST. ACHS BLOOD SUGARS, TOLERATING CONSISTENT CARB DIET. DENIES ANY NEEDS AT THIS TIME.
--- NOTE | 2025-05-17 18:24 | NUR ---
PATIENT TRANSFERRED THIS AM FROM SURGICAL FLOOR. VSS THIS AFTERNOON, ON RA. FLUIDS RUNNING AT 125/HR. PATIENT INCONTINENT OF BOWEL/BLADDER, PUREWICK IN PLACE. WORKED WITH PT/OT TODAY AND WAS ABLE TO GET UP IN CHAIR FOR ABOUT AN HOUR WITH 2 ASSIST, GB AND FWW. REPORTS CHRONIC AND ACUTE "ALL OVER PAIN." MULITPLE ABRASION TO BUE/BLE, OPEN TO AIR. MEPILEX PLACED TO REDNESS ON COCCYX AND CREAM APPLIED TO PERIAREA. PATIENT IRRITABLE AND TEARFUL AT TIMES TODAY. PT/OT RECOMMEDNING SNF AT [place].
[2025-05-18 01:38] VITALS: BP 137/78
[2025-05-18 04:18] VITALS: BP 132/82
[2025-05-18 05:51] LABS: BASOPHILS ABSOLUTE AUTO 0.07 K/mm3 (0.00-0.23); BASOPHILS PERCENT AUTO 1 % (0-2); EOSINOPHILS ABSOLUTE AUTO 0.19 K/mm3 (0.00-0.68); EOSINOPHILS PERCENT AUTO 2 % (0-6); Hematocrit 42.2 % (37.0-53.0); Hemoglobin 14.3 g/dL (13.5-17.5); IMMATURE GRAN ABSOLUTE AUTO 0.47 K/mm3 (0.00-0.10); IMMATURE GRAN PERCENT AUTO 4 % (0-1); LYMPHOCYTES ABSOLUTE AUTO 2.14 K/mm3 (0.84-5.20); LYMPHOCYTES PERCENT AUTO 18 % (21-46); MONOCYTES ABSOLUTE AUTO 1.28 K/mm3 (0.16-1.47); MONOCYTES PERCENT AUTO 11 % (4-13); Mean Corpuscular HGB Conc 33.9 g/dL (31.5-36.5); Mean Corpuscular Volume 89 fL (80-100); NEUTROPHILS ABSOLUTE AUTO 7.80 K/mm3 (1.96-9.15); NEUTROPHILS PERCENT AUTO 65 % (41-73); NRBC ABSOLUTE 0.00 K/mm3 (0.00-0.02); NRBC Auto 0.0 /100 WBC (0.0-0.2); Platelet Count 205 K/mm3 (150-400); RDW Coefficient Variation 15.1 % (11.7-14.2); RDW Standard Deviation 49.0 fL (35.1-46.3)
--- NOTE | 2025-05-18 06:32 | NUR ---
Shift Summary Pt had episode of hypotension yesterday during day shift. By bedtime his systolic was 137, I gave his two blood pressure medications and his BP remained stable t/o the night with systolic in the 130's. BP meds were DC'd in the night including metoprolol. Pt rcving IVF 1/2NS with K as ordered. No c/o of pain or nausea. Pt very alert and awake, oriented x4 this shift.
[2025-05-18 06:44] LABS: Alanine Aminotransfer (ALT/SGP 110.0 U/L (12-78); Albumin, Blood 2.7 g/dL (3.4-5.0); Albumin/Globulin Ratio 0.8 (0.8-1.8); Anion Gap 9.0 mmol/L (3-11); Aspartate Aminotrans (AST/SGOT 53.0 U/L (12-37); Bilirubin, Total 1.0 mg/dL (0.1-1.0); Blood Urea Nitrogen 27.0 mg/dL (8-24); CO2, Blood 23.0 mmol/L (21-32); Calcium, Blood 8.3 mg/dL (8.5-10.1); Chloride, Blood 109.0 mmol/L (98-108); Creatinine, Blood 0.98 mg/dL (0.60-1.20); Globulin, Blood 3.2 g/dL (2.2-4.0); Glucose, Blood 176.0 mg/dL (70-99); Phosphorus, Blood 3.2 mg/dL (2.5-4.9); Potassium, Blood 3.5 mmol/L (3.5-5.5); Sodium, Blood 137.0 mmol/L (136-145); Total Protein, Blood 5.9 g/dL (6.4-8.2)
[2025-05-18 07:43] VITALS: BP 107/66
[2025-05-18 08:26] LABS: MYOGLOBIN SERUM 349 ng/mL (<=72)
[2025-05-18 15:02] VITALS: BP 144/80
--- NOTE | 2025-05-18 18:31 | NUR ---
PAIENT A/OX4, UP WITH 1PA AND FWW. EATING WELL AND DRINKNING ALL SUPPLEMENTS. CONTINENT/INCONTINENT OF BOWEL AND BLADDER. VSS, ON RA. HYDROCODONE GIVEN X1 TODAY FOR PAIN WITH STATED RELIEF. MEPILEX TO REDNESS ON COCCYX. MULTIPLE ABRASIONS AND SCABS TO UPPER AND LOWER EXTREMITIES. AWAITING PLACEMENT AT SNF FOR STRENGTHENING.
[2025-05-18 19:41] VITALS: BP 148/85
[2025-05-19 03:48] VITALS: BP 155/89
--- NOTE | 2025-05-19 06:35 | NUR ---
Shift Summary Pt remained in bed this shift. One incontinent BM and void, multiple continent voids in urinal. No c/o of pain or nausea. Good PO intake, he drank water t/o the night. Pt hypertensive t/o the night, AM BP was 155/89. No c/o of pain or nausea. Pt is AOx4, he slept on and off t/o the night.
[2025-05-19 08:06] VITALS: BP 152/94
[2025-05-19 14:51] VITALS: BP 140/93
[2025-05-19 19:14] VITALS: BP 161/89
--- NOTE | 2025-05-19 19:17 | NUR ---
PATIENT A/OX4, MOOD LABILE AND FLIGHT OF IDEAS AT TIMES. ABLE TO AMBULATE WITH 1PA AND FWW. TOLERATING CONSISTENT CARB DIET, ACHS BLOOD SUGARS. MEDCATED X1 TODAY WITH HYDROCODONE WITH STATED RELIEF. MEPILEX TO BUTTOCKS, REDNESS BLANCHABLE. PLAN IS TO DC TO [facility] TOMORROW FOR REHAB.
[2025-05-20 03:33] VITALS: BP 184/100
--- NOTE | 2025-05-20 04:02 | NUR ---
SHIFT SUMMARY PATIENT HAD NO ACUTE CHANGES. AXOX 3 AND ONE ASSIST TO BSC. FLIGHT OF IDEAS. USES URINAL AT BEDSIDE. DENIES CHEST PAIN, SOB, AND N/V. VSS/AFEBRILE. CBG 199. PIV INTACT. CALL LIGHT IN REACH. BED IN LOWEST POSITION. WILL CONTINUE TO MONITOR UNTIL DAY SHIFT NURSE ASSUMES CARE.
[2025-05-20 07:46] VITALS: BP 167/97
[2025-05-20 11:15] VITALS: BP 144/83
--- NOTE | 2025-05-20 11:21 | NUR ---
PER PROVIDER REQUEST, RN VERFIED PT TAKES METORPOLOL SUCCINATE 25 MG PO @ BEDTIME c [facility]. RN NOTIFIED PROVIDER OF VERIFICATION PER PHONE PER PROVIDER REQUEST. PROVIDER REPORTS HE WILL ENTER ORDERS. NO FURTHER ORDERS OR INTERVENTIONS AT THIS TIME.
[2025-05-20] MEDS ORDERED: B-1100 M1 PO (12:58)
[2025-05-20] MEDS ORDERED: HUMALOG KW100 UNIT/1 SC (12:59)
--- NOTE | 2025-05-20 15:16 | NUR ---
DISCHARGE NOTE: PT ALERT AND ORIENTED X3, ON RA, VSS. TRANSPORT VIA TO [facility]. PT SELF TRANSFERRED TO IN ROOM. DC PACKET SENT WITH TRANSFER STAFF. REPORT CALLED AND GIVEN TO RADHA PARRA AND ALL QUESTIONS ANSWERED. ALL BELONGINGS SENT WITH PATIENT. DAUGHTER AWARE OF PT'S TRANSFER TO [facility].
== END 2025-05-20 15:11 | DRG 862 ==
LOC: ER 13:13 → SURS 13:14 → ERHOLD 13:14 → SURS 19:25 → MEDS 05-17 10:52 → ENPENDDIS 05-20 12:30 → MEDS 05-20 15:11
PROVIDERS: Emergency Medicine; Internal Medicine; ADMIT Internal Medicine
DX: T81.41XA Infection following a procedure, superficial incisional surgical site, initial encounter (principal); A41.9 Sepsis, unspecified organism; R65.20 Severe sepsis without septic shock; E87.20 Acidosis, unspecified; L03.113 Cellulitis of right upper limb; E44.0 Moderate protein-calorie malnutrition; N20.0 Calculus of kidney; Y84.8 Other medical procedures as the cause of abnormal reaction of the patient, or of later complication, without mention of misadventure at the time of the procedure; R29.6 Repeated falls; I10 Essential (primary) hypertension; N40.0 Benign prostatic hyperplasia without lower urinary tract symptoms; G89.4 Chronic pain syndrome; F41.1 Generalized anxiety disorder; I95.9 Hypotension, unspecified; N28.1 Cyst of kidney, acquired; E83.41 Hypermagnesemia; E11.65 Type 2 diabetes mellitus with hyperglycemia; E86.0 Dehydration; E11.42 Type 2 diabetes mellitus with diabetic polyneuropathy; S80.812A Abrasion, left lower leg, initial encounter; S80.811A Abrasion, right lower leg, initial encounter; E78.2 Mixed hyperlipidemia; Z60.2 Problems related to living alone; W07.XXXA Fall from chair, initial encounter; Y92.009 Unspecified place in unspecified non-institutional (private) residence as the place of occurrence of the external cause; Z91.81 History of falling; Z85.828 Personal history of other malignant neoplasm of skin; Z79.84 Long term (current) use of oral hypoglycemic drugs; Z89.421 Acquired absence of other right toe(s); Z89.422 Acquired absence of other left toe(s); Z89.412 Acquired absence of left great toe; Z68.27 Body mass index [BMI] 27.0-27.9, adult
CPT/HCPCS: 36415; 70450; 71260; 72125; 74177; 80048; 80053; 80320; 81001; 82550; 82607; 82947; 83605; 83735; 83874; 84100; 84439; 84443; 85025; 85610; 85730; 87040; 93005; 93010; 96360-59; 96361; 96365; 96366; 96372; 97110; 97161; 97165; 97530; 97535; 99285-25; A9270; G0378; J0696; J1650; J3480; J7030; Q9967